=== PATIENT | male | born 1970 | race Caucasian/White ===

== ENCOUNTER 2019-01-05 06:48 | Day surgery (SDC) | payer OTHER ==
[~2019-01-05] VITALS: Ht 177.8 cm; Wt 119.6 kg
[2019-01-05 07:26] VITALS: BP 146/85; PULSE 71; TEMP 98
[2019-01-05] MEDS ORDERED: OMEGA-3 1000 MG1 CAP PO (07:28)
[2019-01-05 11:55] VITALS: BP 104/79; PULSE 71; TEMP 97.7
--- NOTE | 2019-01-05 11:55 | NUR ---
Pt arrives from endo procedure via cart. Pt ambulates from cart to recliner with RN assist. Monitors on and alarms set. Call light within reach. Report received from MIRTHA De La Torre. Pt denies pain or nausea or other complaints. Pt requests muffin and ice water. Pt alert and oriented.
[2019-01-05 12:00] VITALS: BP 104/71; PULSE 71
[2019-01-05 12:15] VITALS: BP 114/80; PULSE 59
--- NOTE | 2019-01-05 12:15 | NUR ---
Pt taking food and drink well. No complaints voiced.
[2019-01-05 12:30] VITALS: BP 106/69; PULSE 66
--- NOTE | 2019-01-05 12:30 | NUR ---
Discharge instructions given to patient and . All questions answered to their satisfaction. Handed to them are a thank you card, discharge instructions, diagnosis information, procedural photos, and a discharge med sheet.
--- NOTE | 2019-01-05 12:40 | NUR ---
Pt transferred out of hospital via wheelchair and this RN to private vehicle driven by .
== END 2019-01-05 12:40 | disposition home or self-care (01) ==
LOC: SDCO 06:48
DX: D12.0 Benign neoplasm of cecum (principal); D12.2 Benign neoplasm of ascending colon; D12.4 Benign neoplasm of descending colon; D12.8 Benign neoplasm of rectum; K59.00 Constipation, unspecified; K21.9 Gastro-esophageal reflux disease without esophagitis; Z87.891 Personal history of nicotine dependence; Z98.52 Vasectomy status
CPT/HCPCS: J2250; J2405; J3010; J7030

== ENCOUNTER 2022-05-07 07:07 | Day surgery (SDC) | payer BC ==
[~2022-05-07] VITALS: Ht 177.8 cm; Wt 99.7 kg
[~2022-05-07 07:07] MED LIST: OMEGA-3 1000 MG1 CAP PO
[2022-05-07 07:23] VITALS: BP 124/67; PULSE 54; TEMP 97.6
[2022-05-07] MEDS ORDERED: NATURAL MAGNES200 MG PO (07:23)
[2022-05-07 08:40] VITALS: BP 95/58; PULSE 50; TEMP 97.3
--- NOTE | 2022-05-07 08:40 | NUR ---
PATIENT AMBULATED TO CHAIR WITH STANDBY ASSIST. PATIENT ALERT AND ORIENTED, DENIES PAIN AND NAUSEA. BREATHING REGULAR AND UNLABORED. SEE CHART FOR VITAL SIGNS. NURSE HANDOFF COMPLETED IN ROOM. PATIENT HAD CRANBERRY JUICE AND APPLESAUCE, BOTH TOLERATED WELL. MET WITH PATIENT IN ROOM TO DISCUSS PROCEDURE. CALL LIGHT IN REACH.
[2022-05-07 08:45] VITALS: BP 102/65; PULSE 50
[2022-05-07 09:00] VITALS: BP 105/72; PULSE 52
[2022-05-07 09:15] VITALS: BP 112/69; PULSE 55
--- NOTE | 2022-05-07 09:15 | NUR ---
PATIENT DENIES PAIN AND NAUSEA. DISCHARGE TEACHING COMPLETED WITH PRINTED EDUCATION AND INSTRUCTIONS SENT HOME WITH PATIENT. PATIENT VERBALIZED UNDERSTANDING OF TEACHING. IV REMOVED. PATIENT DISCHARGED HOME WITH FRIEND, CARMELA, TRANSPORT.
== END 2022-05-07 09:27 | disposition home or self-care (01) ==
LOC: SDCO 07:07
DX: Z12.11 Encounter for screening for malignant neoplasm of colon (principal); K64.0 First degree hemorrhoids; K63.5 Polyp of colon
CPT/HCPCS: J2704; J7120

== ENCOUNTER 2024-01-08 08:29 | Day surgery (SDC) | payer BC ==
[~2024-01-08] VITALS: Ht 177.8 cm; Wt 105.8 kg
[~2024-01-08 08:29] MED LIST changes: +LR 1,000 ML IV SCH; +NATURAL MAGNES200 MG PO
[2024-01-08] MEDS ORDERED: ZYRTEC 10MG10 MG PO (08:58)
[2024-01-08] MEDS ORDERED: Lidocaine PF 2% (20 MG/ML) 5 ML VIAL ONE (09:05)
[2024-01-08] MEDS ORDERED: NS 10 ML IV ONE (09:05)
[2024-01-08] MEDS ORDERED: Ondansetron 4 MG/2 ML VIAL ONE (09:05)
[2024-01-08] MEDS ORDERED: fentaNYL 50 MCG/ML 2 ML VIAL ONE (09:05)
[2024-01-08] MEDS ORDERED: dexAMETHasone 10 MG/ML VIAL ONE (09:05)
[2024-01-08] MEDS ORDERED: Glycopyrrolate 0.2 MG/ML 1 ML VIAL ONE (09:05)
[2024-01-08] MEDS ORDERED: Rocuronium 50 MG/5 ML Multi-Dose VIAL ONE (09:12)
[2024-01-08 09:13] VITALS: BP 106/59; PULSE 53; TEMP 98
[2024-01-08] MEDS ORDERED: Lidocaine PF 2% (20 MG/ML) 10 ML POLY AMP IJ ONE (09:48)
[2024-01-08] MEDS ORDERED: Bacitracin Topical Oint 30 GM TUBE TOP ONE (09:48)
[2024-01-08] MEDS ORDERED: Meperidine 50 MG/ML 1 ML VIAL IV PRN (10:00)
[2024-01-08] MEDS ORDERED: HYDROmorphone 1 MG/1 ML SYRINGE [PACU/SDC ONLY] IV PRN (10:00)
[2024-01-08] MEDS ORDERED: Morphine 2 MG/1 ML VIAL [PACU/SDC ONLY] IV PRN (10:00)
[2024-01-08] MEDS ORDERED: Ondansetron 4 MG/2 ML VIAL IV PRN ×2 (10:00→10:45)
[2024-01-08] MEDS ORDERED: LR 1,000 ML IV ONE (10:39)
[2024-01-08] MEDS ORDERED: Morphine 4 MG/ML VIAL IV PRN (10:45)
[2024-01-08] MEDS ORDERED: NORCO 325 MG-51 TAB PO (10:56)
[2024-01-08 11:20] VITALS: BP 109/55; PULSE 55; TEMP 97.6
[2024-01-08 11:35] VITALS: BP 108/54; PULSE 57
[2024-01-08 11:50] VITALS: BP 102/62; PULSE 52
[2024-01-08 11:57] VITALS: BP 96/64; PULSE 51; TEMP 97
--- NOTE | 2024-01-08 12:10 | NUR ---
1120-PT TO BAY 6 PER CART FROM PACU. REPORT RECEIVED. VS OBTAINED. CALL LIGHT WITHIN REACH. PT DENIES ANY NEEDS AT THIS TIME. 1125-PT TOLERATING WATER AND MUFFINS. 1135-PT DENIES ANY NEEDS. NO CHANGE. 1155-IV DC'D AT THIS TIME. 1200-DISCHARGE EDUCATION COMPLETED WITH PT AND HIS . [employer] EDUCATION PROVIDED AT THIS TIME WITH NECESSARY SUPPLIES FOR HOME. VERBALIZED UNDERSTANDING OF HOME AND FOLLOW UP CARE. ALL QUESTIONS ANSWERED. DISCHARGE PAPERWORK GIVEN TO PT. 1205-PT ABLE TO DRESS SELF WITH ASSISTANCE OF HIS . 1210-PT OFF UNIT PER WHEELCHAIR. PT DISCHARGED TO HOME WITH HIS PER PERSONAL VEHICLE.
== END 2024-01-08 12:10 | disposition home or self-care (01) ==
LOC: SDCO 08:29
DX: L05.91 Pilonidal cyst without abscess (principal); E66.9 Obesity, unspecified; Z68.33 Body mass index [BMI] 33.0-33.9, adult
CPT/HCPCS: J0690; J1100; J2405; J2704; J3010; J7120